=== PATIENT | female | born 1975 | race Caucasian/White ===

== ENCOUNTER 2020-05-25 14:42 | Outpatient (REF) | payer OTHER, SELFPAY ==
[2020-05-29 01:07] LABS: SARS-CoV-2 RNA Undetected (Undetected); SARS-CoV-2 Specimen Source Nasal
== END 2020-05-25 15:02 ==
LOC: NCHCN 14:42
PROVIDERS: PCP Internal Medicine; Visit Provider Family Medicine
DX: Z20.828 Contact with and (suspected) exposure to other viral communicable diseases (principal)
CPT/HCPCS: U0003

== ENCOUNTER 2020-05-27 19:39 | Outpatient (REF) | payer OTHER, SELFPAY ==
[2020-05-27 21:45] LABS: BUN 10 mg/dL (7-18); CREATININE 0.69 mg/dL (0.55-1.02); Calcium 8.6 mg/dL (8.5-10.1); Chloride 104 mmol/L (98-107); Glucose 90 mg/dL (74-106); Potassium 4.6 mmol/L (3.5-5.1); Sodium 138 mmol/L (136-145); TSH (W/Ref FT4) 2.11 uIU/mL (0.36-3.74)
== END 2020-05-27 19:59 ==
LOC: NCHCN 19:39
PROVIDERS: PCP Internal Medicine; Visit Provider Family Medicine
DX: Z00.00 Encounter for general adult medical examination without abnormal findings (principal); Z01.818 Encounter for other preprocedural examination; E66.3 Overweight
CPT/HCPCS: 80048; 84443

== ENCOUNTER 2020-08-27 14:51 | Outpatient (REF) | payer OTHER, SELFPAY ==
--- NOTE | 2020-08-27 14:15 | PAPFT_PTH ---
PATIENT: Annika Lu LOC: [facility] U#:[id number] AGE/SX: 45/F ROOM: RE08/27/[address]: Mel Otoole : 1975 BED: DIS: 08/27/2020 SPEC #: [id number] RECD: 08/30/20 12:55 STATUS: CHARLEE REJuanito #: [id number] AV: 08/27/20 14:[address]: Mel Otoole DEPT: [facility] Cytology RECD BY: Azul Hernandez ENTERED: 08/30/20 12:55 SP TYPE: PAPFT OTHR DR: Antony Vasquez Tissues: 1 - CX/ENDOCX FOR PAP SMEARS Procedures: PAP THIN PREP/[facility] Screening HPV DNA PROBE Comments: [id number]
[2020-08-27 21:50] LABS: ALT 77 U/L (14-59); AST 44 U/L (15-37); Albumin 4.1 g/dL (3.4-5.0); Alkaline Phosphatase 46 U/L (46-116); Anion Gap 9.6 mmol/L (3-11); BUN 9 mg/dL (7-18); Bilirubin, Total 0.3 mg/dL (0.2-1.0); CO2 27.4 mmol/L (21.0-32.0); CREATININE 0.6 mg/dL (0.55-1.02); Calcium 9.1 mg/dL (8.5-10.1); Calculated LDL 85 mg/dL (<100); Chloride 104 mmol/L (98-107); Cholesterol 160 mg/dL (<200); Glucose 87 mg/dL (74-106); HDL Cholesterol 62 mg/dL (40-60); Potassium 3.9 mmol/L (3.5-5.1); Sodium 141 mmol/L (136-145); Total Protein 7.2 g/dL (6.4-8.2); Triglyceride 66 mg/dL (<150)
== END 2020-08-27 14:52 | disposition home or self-care (01) ==
LOC: NCHCN 14:51
PROVIDERS: PCP Internal Medicine; Visit Provider Family Medicine
DX: Z00.00 Encounter for general adult medical examination without abnormal findings (principal); E66.3 Overweight; Z12.4 Encounter for screening for malignant neoplasm of cervix; Z11.51 Encounter for screening for human papillomavirus (HPV)
CPT/HCPCS: 80053; 80061; 88142; 87624

== ENCOUNTER 2020-10-07 08:32 | Outpatient (REF) | payer OTHER, SELFPAY ==
[2020-10-07 13:53] LABS: Absolute Basophil Count 0.05 10^3/uL (0.0-0.2); Absolute Eosinophil Count 0.28 10^3/uL (0.0-0.7); Absolute Lymphocyte Count 1.44 10^3/uL (1.2-3.4); Absolute Monocyte Count 0.36 10^3/uL (0.1-0.8); Absolute Neutrophil Count 1.18 10^3/uL (1.2-6.7); Basophils % 1.5; Eosinophils % 8.5; HCT 39.5 % (36.0-46.0); HGB 12.9 g/dL (11.2-15.7); Lymphocytes % 43.5; MCH 28.6 pg (27.0-33.0); MCHC 32.7 % (32.0-36.0); MCV 87.6 fL (80-95); MPV 11.7 fL (8.0-11.0); Monocytes % 10.9; Neutrophils % 35.6; Nucleated RBC 0 %; Platelet Count 239 10^3/uL (130-400); RBC 4.51 10^6/uL (3.93-5.22); RDW 12.3 % (11.7-14.6); RDW-SD 39.4 fL; WBC 3.31 10^3/uL (4.4-10.8)
[2020-10-07 14:13] LABS: ALT 42 U/L (14-59); AST 32 U/L (15-37); Albumin 3.9 g/dL (3.4-5.0); Alkaline Phosphatase 41 U/L (46-116); Anion Gap 8.4 mmol/L (3-11); BUN 11 mg/dL (7-18); Bilirubin, Total 0.5 mg/dL (0.2-1.0); CO2 26.6 mmol/L (21.0-32.0); CREATININE 0.6 mg/dL (0.55-1.02); Calcium 8.9 mg/dL (8.5-10.1); Chloride 105 mmol/L (98-107); Glucose 93 mg/dL (74-106); Potassium 4.3 mmol/L (3.5-5.1); Sodium 140 mmol/L (136-145); Total Protein 6.7 g/dL (6.4-8.2)
== END 2020-10-07 08:33 | disposition home or self-care (01) ==
LOC: NCHCN 08:32
PROVIDERS: PCP Family Medicine; Visit Provider Family Medicine
DX: R79.89 Other specified abnormal findings of blood chemistry (principal)
CPT/HCPCS: 80053; 85025

== ENCOUNTER 2020-11-25 13:45 | Outpatient (REF) | payer OTHER, SELFPAY ==
[2020-11-25 14:31] LABS: Absolute Basophil Count 0.05 10^3/uL (0.0-0.2); Absolute Eosinophil Count 0.21 10^3/uL (0.0-0.7); Absolute Monocyte Count 0.41 10^3/uL (0.1-0.8); Basophils % 1.2; Eosinophils % 5.2; HGB 13.8 g/dL (11.2-15.7); MCH 28.5 pg (27.0-33.0); MCHC 32.1 % (32.0-36.0); MCV 88.8 fL (80-95); MPV 11.9 fL (8.0-11.0); Monocytes % 10.1; Neutrophils % 56.5; Nucleated RBC 0 %; Platelet Count 238 10^3/uL (130-400); RBC 4.84 10^6/uL (3.93-5.22); RDW 13.2 % (11.7-14.6); RDW-SD 42.8 fL; WBC 4.07 10^3/uL (4.4-10.8)
[2020-11-25 14:59] LABS: ALT 24 U/L (14-59); AST 16 U/L (15-37); Albumin 4.5 g/dL (3.4-5.0); Alkaline Phosphatase 45 U/L (46-116); Anion Gap 10.9 mmol/L (3-11); BUN 9 mg/dL (7-18); Bilirubin, Total 0.7 mg/dL (0.2-1.0); CO2 28.1 mmol/L (21.0-32.0); CREATININE 0.7 mg/dL (0.55-1.02); Calcium 9.1 mg/dL (8.5-10.1); Calculated LDL 82 mg/dL (<100); Chloride 103 mmol/L (98-107); Cholesterol 155 mg/dL (<200); Glucose 93 mg/dL (74-106); HDL Cholesterol 62 mg/dL (40-60); Potassium 3.9 mmol/L (3.5-5.1); Sodium 142 mmol/L (136-145); TSH 3.74 uIU/mL (0.36-3.74); Total Protein 7.8 g/dL (6.4-8.2); Triglyceride 58 mg/dL (<150)
[2020-11-30 16:24] LABS: 25-Hydroxy D Total 21 ng/mL; 25-Hydroxy D2 <4.0 ng/mL; 25-Hydroxy D3 21 ng/mL
== END 2020-11-25 13:46 | disposition home or self-care (01) ==
LOC: LBN 13:45
PROVIDERS: PCP Family Medicine; Visit Provider Counselor Mental Health
DX: E55.9 Vitamin D deficiency, unspecified (principal); F31.9 Bipolar disorder, unspecified; Z79.899 Other long term (current) drug therapy
CPT/HCPCS: 80053; 80061; 82306; 84443; 85025

== ENCOUNTER 2020-11-29 15:10 | Outpatient (REF) | payer OTHER, SELFPAY ==
[2020-11-29 14:17] LABS: Lithium 0.3 mmol/l (0.6-1.2)
== END 2020-11-29 15:11 | disposition home or self-care (01) ==
LOC: LBN 15:10
PROVIDERS: PCP Family Medicine; Visit Provider Counselor Mental Health
DX: F31.9 Bipolar disorder, unspecified (principal); Z51.81 Encounter for therapeutic drug level monitoring
CPT/HCPCS: 80178

== ENCOUNTER 2022-10-13 16:23 | Outpatient (REF) | payer BC, SELFPAY ==
[2022-10-13 15:34] LABS: Glucose 100 mg/dL (74-106); Hemoglobin A1C 5.6 % (<5.7)
== END 2022-10-13 16:24 | disposition home or self-care (01) ==
LOC: NCHCN 16:23
PROVIDERS: PCP Family Medicine; Visit Provider Family Medicine
DX: E16.2 Hypoglycemia, unspecified (principal)
CPT/HCPCS: 82947; 83036

== ENCOUNTER 2024-04-25 14:56 | Outpatient (REF) | payer BC, SELFPAY ==
[2024-04-27 23:27] LABS: Campylobacter PCR Negative (Negative); Salmonella PCR Negative (Negative); Shiga Toxin PCR Negative (Negative); Shigella/Enteroinvasive Ecoli Negative (Negative)
== END 2024-04-25 14:57 | disposition home or self-care (01) ==
LOC: NCHCN 14:56
PROVIDERS: PCP Family Medicine; Visit Provider Family Medicine
DX: R19.5 Other fecal abnormalities (principal)
CPT/HCPCS: 87505; 83630

== ENCOUNTER 2024-05-01 08:40 | Outpatient (REF) | payer BC, SELFPAY | END 2024-05-01 08:41 | disposition home or self-care (01) | LOC: NCHCN 08:40 | PROVIDERS: PCP Family Medicine; Visit Provider Family Medicine | DX: R19.7 Diarrhea, unspecified (principal) | CPT/HCPCS: 87177 ==